=== PATIENT | male | born 1980 | race Caucasian/White ===

== ENCOUNTER 2022-03-14 04:33 | Day surgery (SDC) | payer OTHER ==
[2022-03-13 19:42] VITALS: BMI 29.6
[2022-03-14] MEDS ORDERED: MIDAZOLAM HCL 2 MG/2 ML SINGLE DOSE VIAL ONE (11:09)
[2022-03-14] MEDS ORDERED: BUPIVACAINE HCL/PF 0.5% (5MG/ML) 10 ML VIAL ONE (11:30)
[2022-03-14] MEDS ORDERED: ceFAZolin SODIUM 1 GM VIAL IVPB ONE (12:05)
[2022-03-14] MEDS ORDERED: ONDANSETRON 4 MG/2 ML VIAL IVPUSH PRN (12:36)
[2022-03-14] MEDS ORDERED: oxyCODONE HCL 5 MG TABLET PO PRN (12:36)
[2022-03-14] MEDS ORDERED: BUPIVACAINE HCL/PF 0.5% (5 MG/ML) 30 ML VIAL IJ ONE (12:37)
[2022-03-14] MEDS ORDERED: GLYCOPYRROLATE 0.2 MG/1 ML VIAL ONE (12:42)
[2022-03-14] MEDS ORDERED: NEOSTIGMINE METHYLSULFATE 0.5 MG/ML - 10 ML MDV ONE (12:42)
[2022-03-14] MEDS ORDERED: LACTATED RINGERS SOLUTION 1,000 ML IV SCH (12:45)
[2022-03-14 14:41] VITALS: RESP 18
[2022-03-14 16:15] VITALS: BP 141/94; PULSE 86; TEMP 98.8
== END 2022-03-14 15:30 | disposition home or self-care (01) ==
LOC: JASU-SURG 04:33
PROVIDERS: ATTEND Surgery
PROC: 0DTJ4ZZ Resection of Appendix, Percutaneous Endoscopic Approach (ICD-10-PCS; principal; 2022-03-14 10:45)
DX: K36 Other appendicitis (principal)
CPT/HCPCS: 88304-TC; 94760